=== PATIENT | male | born 1975 | race Caucasian/White ===

== ENCOUNTER 2020-09-18 12:33 | Emergency (ER) | payer OTHER ==
--- OUTSIDE RECORDS SUMMARY | 2020-09-18 12:36 | XMS REPORT | Continuity of Care Document ---
:1975 Author Organization [facility] t Address [address] [place] [address] Care Team Providers Name Role Phone DR Delfina MAYA Attending Clinician Unavailable DR Delfina MAYA Admitting Clinician Unavailable Problems This patient has no known problems. Allergies, Adverse Reactions, Alerts This patient has no known allergies or adverse reactions. Medications This patient has no known medications. Procedures This patient has no known procedures. Encounters Start End Encounter Admission Attending Care Care Encounter Source Date/Time Date/Time Type Type Clinicians Facility Department ID 2018-05-11 2018-05-[address] [facility] [id number] [facility] 13:20:00 13:59:00 [facility] Results This patient has no known results.
[2020-09-18] MEDS ORDERED: METHYLPREDNISOLONE 125 MG INJ ONE (13:54)
[2020-09-18] MEDS ORDERED: KETOROLAC 30 MG/ML INJ ONE (13:55)
[2020-09-18] MEDS ORDERED: HYDROCODONE/APAP 10/325 TAB ONE (13:55)
--- NOTE | 2020-09-18 14:37 | RAD REPORT ---
EXAM DESCRIPTION: RAD - Chest Pa And Lat (2 Views) - 09/18/2020 2:19 pm CLINICAL HISTORY: CHEST PAIN Chest pain. COMPARISON: Ribs Right dated 09/18/2020 FINDINGS: The lungs are clear. The heart is normal in size. No displaced fractures. Left humeral pro sthesis. IMPRESSION: No acute or concerning finding suspected.
--- NOTE | 2020-09-18 14:40 | RAD REPORT ---
EXAM DESCRIPTION: RAD - Ribs Right - 09/18/2020 2:26 pm CLINICAL HISTORY: PAIN COMPARISON: Chest Pa And Lat (2 Views) dated 09/18/2020 FINDINGS: No displaced rib fracture is seen.
--- NOTE | 2020-09-18 15:21 | ER ---
Nurse's Notes [facility] Name: Jesus Diamond Jr Age: 45 yrs Sex: Male : 1975 Arrival Date: 09/18/2020 Time: 12:37 Bed 30 Private MD: Diagnosis: Chest pain on breathing;Other chest pain Presentation: 09/18 12:48 Chief complaint: Patient states: Kicked off a horse 13 days ago. Landed on R side. ll1 States he has had R rib cage pain for the past 10 days with SOB. + cough and congestion. No fever. Coronavirus screen: Client denies travel out of the [place] in the last 14 days. cough unrelated to allergies, difficulty breathing, shortness of breath, Client presents with at least one sign or symptom that may indicate coronavirus-19. Standard/surgical mask placed on the client. Ebola Screen: Patient denies travel to an Ebola-affected area in the 21 days before illness onset. Initial Sepsis Screen: Does the patient meet any 2 criteria? No. Patient's initial sepsis screen is negative. Does the patient have a suspected source of infection? Yes: Productive cough/pneumonia Bone or joint infection. Risk Assessment: Do you want to hurt yourself or someone else? Patient reports no desire to harm self or others. Onset of symptoms was September 04, 2020. 12:48 Method Of Arrival: Ambulatory ll1 12:48 Acuity: ROLDAN 3 ll1 Historical: - Allergies: 12:50 No Known Allergies; ll1 - PMHx: 12:50 None; ll1 - PSHx: 12:50 total joint L shoudler; ll1 - Immunization history:: Flu vaccine is not up to date. - Social history:: Smoking status: Patient reports the use of cigarette tobacco products, smokes one pack cigarettes per day. Screenin:07 Abuse screen: Denies threats or abuse. Nutritional screening: No deficits noted. vg1 Tuberculosis screening: No symptoms or risk factors identified. Fall Risk Fall in past 12 months (25 points). No secondary diagnosis (0 pts). No IV (0 pts). Ambulatory Aid- None/Bed Rest/Nurse Assist (0 pts). Gait- Normal/Bed Rest/Wheelchair (0 pts) Mental Status- Oriented to own ability (0 pts). Total Al[place]uer Fall Scale indicates Low Risk Score (25-44 pts). Fall prevention measures have been instituted. Side Rails Up X 2 Placed close to Nursing Station. Assessment: 13:05 General: Appears in no apparent distress. uncomfortable, Behavior is calm, cooperative. vg1 Pain: Complains of pain in Right side of rib cage Pain currently is 0 out of 10 on a pain scale. at worst was 10 out of 10 on a pain scale. Pain began about 10 days ago Alleviated by rest, Aggravated by increased activity, cough. Neuro: Level of Consciousness is awake, alert, obeys commands, Oriented to person, place, time, situation. Cardiovascular: Patient's skin is warm and dry. Respiratory: Airway is patent Respiratory effort is even, unlabored, Respiratory pattern is regular, symmetrical, Breath sounds are clear bilaterally. Respiratory: Reports shortness of breath on exertion cough that is productive, pain with cough pain with respiration. GI: No signs and/or symptoms were reported involving the gastrointestinal system. : No signs and/or symptoms were reported regarding the genitourinary system. EENT: No signs and/or symptoms were reported regarding the EENT system. Derm: Skin is intact, is healthy with good turgor. Musculoskeletal: Circulation, motion, and sensation intact. 14:41 Reassessment: Patient appears in no apparent distress at this time. Patient and/or vg1 family updated on plan of care and expected duration. Pain level reassessed. Patient is alert, oriented x 3, equal unlabored respirations, skin warm/dry/pink. Patient states pain level has decreased to 8/10 and states it feels slightly better to breath. Provider notified. Vital Signs: 12:48 BP 158 / 107; Pulse 80; Resp 18; Temp 98.5; Pulse Ox 99% ; Weight 108.86 kg; Height 6 ll1 ft. 0 in. (182.88 cm); Pain 10/10; 13:07 BP 134 / 90; Pulse 78; Resp 20; Pulse Ox 96% on R/A; vg1 14:30 BP 137 / 77; Pulse 65; Resp 18; Pulse Ox 97% on R/A; vg1 12:48 Body Mass Index 32.55 (108.86 kg, 182.88 cm) ll1 ED Course: 12:37 Patient arrived in ED. ds1 12:49 Triage completed. ll1 12:50 Arm band placed on Patient placed in an exam room, on a stretcher. ll1 12:57 Anayeli Rouse, RN is Primary Nurse. vg1 13:07 Patient has correct armband on for positive identification. Bed in low position. Call vg1 light in reach. Side rails up X 1. 13:15 Cosmo Sweet MD is Attending Physician. kdr 13:50 Inserted saline lock: 20 gauge in left antecubital area, using aseptic technique. vg1 14:17 Ribs Right XRAY In Process Unspecified. EDMS 14:17 Chest Pa And Lat (2 Views) In Process Unspecified. EDMS 15:30 No provider procedures requiring assistance completed. IV discontinued, intact, vg1 bleeding controlled, No redness/swelling at site. Pressure dressing applied. Administered Medications: 13:50 Drug: TORadol - Ketorolac 15 mg Route: IVP; Site: left antecubital; vg1 15:02 Follow up: Response: Pain is decreased vg1 13:50 Drug: [place] 10 mg-325 mg 1 tabs Route: PO; vg1 15:02 Follow up: Response: No adverse reaction; Pain is decreased vg1 13:51 Drug: SOLU-Medrol 125 mg Route: IVP; Site: left antecubital; vg1 15:02 Follow up: Response: No adverse reaction vg1 14:01 Drug: Robaxin 1 grams Route: IVPB; Infused Over: 1 hrs; Site: left antecubital; vg1 15:01 Follow up: IV Status: Completed infusion vg1 Outcome: 15:20 Discharge ordered by . kdr 15:30 Discharged to home ambulatory. vg1 15:30 Condition: stable 15:30 Discharge instructions given to patient, Instructed on discharge instructions, follow up and referral plans. medication usage, Demonstrated understanding of instructions, follow-up care, medications, Prescriptions given X 3. 15:30 Patient left the ED. vg1 Signatures: Dispatcher [employer] EDMS Cosmo Sweet MD MD kdr Sanford, Demi ds1 Anayeli Rouse, RN RN vg1 Arti Reddy RN RN ll1
--- NOTE | 2020-09-18 15:21 | EDPHYS ---
Physician Documentation [facility] Name: Jesus Diamond Jr Age: 45 yrs Sex: Male : 1975 Arrival Date: 09/18/2020 Time: 12:37 Bed 30 Private MD: ED Physician Cosmo Sweet HPI: 09/18 13:33 This 45 yrs old Male presents to ER via Ambulatory with complaints of kdr Breathing Difficulty. 13:33 The patient has shortness of breath at rest, with light activity, that occurred at kdr home. Onset: The symptoms/episode began/occurred suddenly, 11 day(s) ago. Duration: The symptoms are intermittent, With coughing, deep breathing and movement. The patient's shortness of breath is aggravated by coughing, Breathing. Associated signs and symptoms: Pertinent positives: chest pain, Pertinent negatives: productive cough, diaphoresis, dizziness, fever, hemoptysis, loss of consciousness, nausea, numbness in extremities, visual changes, vomiting. Severity of symptoms: At their worst the symptoms were mild moderate just prior to arrival, in the emergency department the symptoms are unchanged. The patient has not experienced similar symptoms in the past. The patient has not recently seen a physician. Fell off his horse about 11 days ago and since then has had persistent right upper anterior chest pain with chest wall movement. The pain is not reproducible with compression of the chest. Historical: - Allergies: 12:50 No Known Allergies; ll1 - PMHx: 12:50 None; ll1 - PSHx: 12:50 total joint L shoudler; ll1 - Immunization history:: Flu vaccine is not up to date. - Social history:: Smoking status: Patient reports the use of cigarette tobacco products, smokes one pack cigarettes per day. ROS: 13:33 Constitutional: Negative for fever, chills, and weight loss, Eyes: Negative for injury, kdr pain, redness, and discharge, ENT: Negative for injury, pain, and discharge, Neck: Negative for injury, pain, and swelling, Respiratory: Negative for shortness of breath, cough, wheezing, and pleuritic chest pain, Abdomen/GI: Negative for abdominal pain, nausea, vomiting, diarrhea, and constipation, Back: Negative for injury and pain, : Negative for injury, bleeding, discharge, and swelling, MS/Extremity: Negative for injury and deformity, Skin: Negative for injury, rash, and discoloration, Neuro: Negative for headache, weakness, numbness, tingling, and seizure activity. Psych: Negative for depression, anxiety, suicide ideation, homicidal ideation, and hallucinations, Allergy/Immunology: Negative for hives, rash, and allergies, Endocrine: Negative for neck swelling, polydipsia, polyuria, polyphagia, and marked weight changes, Hematologic/Lymphatic: Negative for swollen nodes, abnormal bleeding, and unusual bruising. 13:33 Cardiovascular: Positive for chest pain, with cough, with movement, of the right clavicle and anterior aspect of right upper chest. Exam: 13:33 Constitutional: This is a well developed, well nourished patient who is awake, alert, kdr and in no acute distress. Head/Face: Normocephalic, atraumatic. Eyes: Pupils equal round and reactive to light, extra-ocular motions intact. Lids and lashes normal. Conjunctiva and sclera are non-icteric and not injected. Cornea within normal limits. Periorbital areas with no swelling, redness, or edema. Neck: Trachea midline, no thyromegaly or masses palpated, and no cervical lymphadenopathy. Supple, full range of motion without nuchal rigidity, or vertebral point tenderness. No Meningismus. Chest/axilla: Normal chest wall appearance and motion. Nontender with no deformity. No lesions are appreciated. Cardiovascular: Regular rate and rhythm with a normal S1 and S2. No gallops, murmurs, or rubs. Normal PMI, no JVD. No pulse deficits. Respiratory: Lungs have equal breath sounds bilaterally, clear to auscultation and percussion. No rales, rhonchi or wheezes noted. No increased work of breathing, no retractions or nasal flaring. Abdomen/GI: Soft, non-tender, with normal bowel sounds. No distension or tympany. No guarding or rebound. No evidence of tenderness throughout. Back: No spinal tenderness. No costovertebral tenderness. Full range of motion. Skin: Warm, dry with normal turgor. Normal color with no rashes, no lesions, and no evidence of cellulitis. MS/ Extremity: Pulses equal, no cyanosis. Neurovascular intact. Full, normal range of motion. Neuro: Awake and alert, GCS 15, oriented to person, place, time, and situation. Cranial nerves II-XII grossly intact. Motor strength 5/5 in all extremities. Sensory grossly intact. Cerebellar exam normal. Normal gait. Psych: Awake, alert, with orientation to person, place and time. Behavior, mood, and affect are within normal limits. Vital Signs: 12:48 BP 158 / 107; Pulse 80; Resp 18; Temp 98.5; Pulse Ox 99% ; Weight 108.86 kg; Height 6 ll1 ft. 0 in. (182.88 cm); Pain 10/10; 13:07 BP 134 / 90; Pulse 78; Resp 20; Pulse Ox 96% on R/A; vg1 14:30 BP 137 / 77; Pulse 65; Resp 18; Pulse Ox 97% on R/A; vg1 12:48 Body Mass Index 32.55 (108.86 kg, 182.88 cm) ll1 MDM: 13:33 Data reviewed: vital signs, nurses notes, lab test result(s). Counseling: I had a kdr detailed discussion with the patient and/or guardian regarding: the historical points, exam findings, and any diagnostic results supporting the discharge/admit diagnosis, lab results, radiology results. 15:20 Patient medically screened. kdr 09/18 13:32 Order name: Ribs Right XRAY; Complete Time: 15:05 kdr 09/18 14:17 Order name: Chest Pa And Lat (2 Views); Complete Time: 15:05 EDMS 09/18 13:50 Order name: IV Saline Lock; Complete Time: 13:50 vg1 Administered Medications: 13:50 Drug: TORadol - Ketorolac 15 mg Route: IVP; Site: left antecubital; vg1 15:02 Follow up: Response: Pain is decreased vg1 13:50 Drug: [place] 10 mg-325 mg 1 tabs Route: PO; vg1 15:02 Follow up: Response: No adverse reaction; Pain is decreased vg1 13:51 Drug: SOLU-Medrol 125 mg Route: IVP; Site: left antecubital; vg1 15:02 Follow up: Response: No adverse reaction vg1 14:01 Drug: Robaxin 1 grams Route: IVPB; Infused Over: 1 hrs; Site: left antecubital; vg1 15:01 Follow up: IV Status: Completed infusion vg1 Disposition: 09/18/20 15:20 Discharged to Home. Impression: Chest pain on breathing, Other chest pain. - Condition is Stable. - Discharge Instructions: Chest Wall Pain, [id number], Nonspecific Chest Pain, [id number]. - Prescriptions for Ibuprofen 800 mg Oral Tablet - take 1 tablet by ORAL route every 8 hours As needed take with food; 30 tablet. Cyclobenzaprine 10 mg Oral Tablet - take 1 tablet by ORAL route every 8 hours As needed; 15 tablet. Tramadol 50 mg Oral Tablet - take 1 tablet by ORAL route every 8 hours as needed; 12 tablet. - Medication Reconciliation Form, Thank You Letter, Prescription Opioid Use form. - Follow up: Private Physician; When: 2 - 3 days; Reason: If symptoms return, Further diagnostic work-up, Recheck today's complaints, Continuance of care, Re-evaluation by your physician. - Problem is new. - Symptoms have improved. Signatures: Dispatcher [employer] [facility] Cosmo Sweet MD MD kdr Anayeli Rouse RN RN vg1 Arti Reddy RN RN ll1 Corrections: (The following items were deleted from the chart) 14:17 13:32 Chest Single View+[email or web address].[email or web address] ordered. [facility] EDOH 15:30 15:20 09/18/2020 15:20 Discharged to Home. Impression: Chest pain on breathing; Other vg1 chest pain. Condition is Stable. Forms are Medication Reconciliation Form, Thank You Letter, Antibiotic Education, Prescription Opioid Use. Follow up: Private Physician; When: 2 - 3 days; Reason: If symptoms return, Further diagnostic work-up, Recheck today's complaints, Continuance of care, Re-evaluation by your physician. Problem is new. Symptoms have improved. kdr
[2020-09-18 15:37] VITALS: TEMP 98.5
[2020-09-18 15:39] VITALS: BP 137/77; O2SAT 97
== END 2020-09-18 15:30 | disposition home or self-care (01) ==
LOC: ER 12:33
DX: R07.89 Other chest pain (principal); F17.210 Nicotine dependence, cigarettes, uncomplicated; Z96.612 Presence of left artificial shoulder joint; V80.010A Animal-rider injured by fall from or being thrown from horse in noncollision accident, initial encounter
CPT/HCPCS: 96365; 71046; 71100; 96375; 99284; J2930; J2800